=== PATIENT | female | born 1975 | race Caucasian/White ===

== ENCOUNTER 2017-02-20 08:59 | Inpatient (IN) | payer MEDICAID ==
[~2017-02-20] VITALS: Ht 157.5 cm; Wt 132.3 kg
[2017-02-20 09:28] VITALS: Ht 157.5 cm; Wt 132.3 kg
[2017-02-20] MEDS ORDERED: PREN1TAB79 PO (09:47)
[2017-02-20] MEDS ORDERED: LACTATED RINGER'S 1,000 ML IV PRN (10:00)
[2017-02-20] MEDS ORDERED: IBUPROFEN 600 MG TAB PO PRN ×2 (10:00→20:20)
[2017-02-20] MEDS ORDERED: CARBOPROST 250 MCG INJ IM PRN (10:00)
[2017-02-20] MEDS ORDERED: HYDROCODONE/APAP (5/325) TAB PO PRN (10:00)
[2017-02-20] MEDS ORDERED: OXYTOCIN 30 UNITS/LR 500 ML IV PRN (10:00)
[2017-02-20] MEDS ORDERED: LIDOCAINE 1% (MPF) 30 ML INJ INJ PRN (10:00)
[2017-02-20] MEDS ORDERED: MISOPROSTOL 200 MCG TAB PR PRN (10:00)
[2017-02-20] MEDS ORDERED: DINOPROSTONE 10 MG VAG SUPP VAG ONE (10:00)
[2017-02-20] MEDS ORDERED: OXYTOCIN 30 UNITS/LR 500 ML IV SCH ×2 (10:00)
[2017-02-20] MEDS ORDERED: BUTORPHANOL 2 MG INJ IV PRN (10:00)
[2017-02-20] MEDS ORDERED: METHYLERGONOVINE 0.2 MG INJ IM PRN (10:00)
[2017-02-20] MEDS ORDERED: MINERAL OIL LIGHT 10 ML VIAL TOP PRN (10:00)
[2017-02-20] MEDS: LACTATED RINGER'S 1,000 ML IV SCH ×3 (10:05→23:39)
[2017-02-20] MEDS: CLINDAMYCIN 900 MG/D5W (PMX) 50 ML IVPB SCH ×2 (10:15→19:22)
[2017-02-20 10:59] LABS: BASOPHILS % 0.3 % (0.0-2.0); EOSINOPHILS # 0.1 10^3/ul (0.0-0.5); EOSINOPHILS % 1.7 % (0.0-7.0); HEMATOCRIT 38.4 % (37.0-47.0); HEMOGLOBIN 12.9 g/dl (12.0-16.0); LYMPHOCYTES # 1.4 10^3/ul (0.8-2.9); LYMPHOCYTES % 20.3 % (15.0-51.0); MEAN CORPUSCULAR HEMOGLOBIN 31.9 pg (29.0-33.0); MEAN CORPUSCULAR HGB CONC 33.6 g/dl (32.0-37.0); MONOCYTE # 0.7 10^3/ul (0.3-0.9); MONOCYTES % 9.8 % (0.0-11.0); NEUTROPHIL # 4.5 10^3/ul (1.6-7.5); NEUTROPHILS % 67.4 % (39.0-77.0); PLATELET COUNT 129 10^3/UL (140-415); RED BLOOD COUNT 4.04 10^6/ul (4.20-5.40); WHITE BLOOD COUNT 6.7 10^3/ul (4.8-10.8)
[2017-02-20 11:19] LABS: INR 0.88; PROTIME 11.9 Sec (12.2-14.2); PT RATIO 0.9
[2017-02-20 11:20] LABS: PARTIAL THROMBOPLASTIN TIME 24.7 Sec (25.0-35.0)
--- NOTE | 2017-02-20 11:26 | RADRPT ---
PROCEDURE: US OB. CLINICAL INDICATION: Size and dates TECHNIQUE: Multiple sonographic images of the pelvis and gravid uterus were obtained. The images were reviewed on a PACS workstation. COMPARISON: No prior studies are available for comparison. FINDINGS: There is a single viable intrauterine gestation. Cardiac activity is present with 163 beats per min luisa. There is a vertex presentation. The placenta is anterior. There is no evidence for an abruption or placenta previa. Measurements were made in order to determine age. The results are as follows: BPD =9.3 cm HC =34.1 cm AC =35.1 cm FL =7.6 cm Estimated gestational age of approximately 38 weeks and 5 days based on ultrasound measurements. Clinical age: 39 weeks and 4 days. The estimated date of delivery is 03/01/17, based on ultrasound measurements. The EFW = 3603 g, 55%, based on LMP age. RPTAT: AA IMPRESSION: Single viable intrauterine gestation of approximately 38 weeks and 5 days based on ultrasound measu rements. .Magdi Newton MD, Date Time Electronically viewed and signed by .Magdi Newton MD, on 02/20/2017 11:26 .S/
[2017-02-20] MEDS ORDERED: DEXTROSE 5%-LR 1,000 ML IV PRN (15:30)
[2017-02-20 16:23] VITALS: BP 116/63; PULSE 65; RESP 20
[2017-02-21] MEDS ORDERED: FENTAnyl 2MCG/ML-ROPIV 0.2% 100 ML ONE (02:18)
[2017-02-21] MEDS ORDERED: ONDANSETRON 4 MG INJ IV PRN ×2 (03:00→14:00)
[2017-02-21] MEDS ORDERED: FENTAnyl 2MCG/ML-ROPIV 0.2% 100 ML BAG EPI SCH (03:00)
[2017-02-21] MEDS ORDERED: HYDROmorphONE 1 MG/ML SYG IV PRN ×2 (03:00)
[2017-02-21] MEDS ORDERED: DIPHENHYDRAMINE 50 MG INJ IV PRN ×2 (03:00→14:00)
[2017-02-21] MEDS ORDERED: KETOROLAC 30 MG INJ IV PRN ×2 (03:00→14:00)
[2017-02-21] MEDS ORDERED: ZOLPIDEM 5 MG TAB PO PRN ×2 (03:00→14:00)
[2017-02-21] MEDS ORDERED: NALOXONE (0.4 MG/ML) INJ IV PRN ×2 (03:00→14:00)
[2017-02-21] MEDS: CLINDAMYCIN 900 MG/D5W (PMX) 50 ML IVPB SCH ×3 (03:26→22:00)
[2017-02-21] MEDS ORDERED: OXYTOCIN 30 UNITS/LR 500 ML BAG IV ONE (07:00)
[2017-02-21] MEDS: LACTATED RINGER'S 1,000 ML IV SCH ×2 (07:23→22:12)
[2017-02-21] MEDS ORDERED: FENTAnyl 50 MCG/ML VIAL ONE (12:01)
[2017-02-21] MEDS ORDERED: LIDOCAINE 2%/EPI 30 ML INJ ONE (12:01)
[2017-02-21] MEDS ORDERED: DEXAMETHASONE 4 MG/ML 1 ML INJ ONE (12:09)
[2017-02-21] MEDS ORDERED: PHENYLephrine (100 MCG/ML) 5ML SYG ONE (12:12)
[2017-02-21] MEDS ORDERED: morphine SULFATE/PF (10 MG/10 ML) INJ ONE (12:38)
[2017-02-21] MEDS ORDERED: morphine 4 MG/ML VIAL IV PRN (14:00)
[2017-02-21] MEDS ORDERED: morphine 2 MG INJ IV PRN (14:00)
[2017-02-21 18:48] VITALS: BP 113/70; PULSE 47; RESP 20
[2017-02-21 19:40] VITALS: BP 107/57; PULSE 53; RESP 22
--- NOTE | 2017-02-21 19:49 | HP ---
Date/Time of Note Date/Time of Note DATE: 02/21/17 TIME: 19:29 OB - History Hx of Present Free Text/Dictation 41y.o was admitted for induction of labor at 39w4d EFw 3603gm she was transferred from other clinic at 33w with PNR known to be A1DM well controlled BS GBS positive allergic to poss penicillin clindamycin given as protocol labor was established well with cervidil and f/b pitocinup to 7-8 cm when labor epidural given ,since then deep variable deceleration almost each contractions IUPC incerted and amnioinfusion was given which lessen the degree of decelerations allowed to continue labor since there is acceleration and BBV present. but no further descent of presenting part as if something holding it . primary c/s was called for failied descent and cat II tracing necessity of c/s was informed and risks were informed in detail ,, agree to have c/s Chief Complaint: iol Estimated Due Date: Feb 23, 2017 : 3 Para: 2 Spontaneous : 0 Therapeutic : 0 Care: Limited Care Ultrasounds: Normal mid trimester US Obstetrical Complications: Gestational Diabetes Medical Complications: None Past Family/Social History * Past Medical, Surgical, Family and Obstetric Histories reviewed from chart. Blood Type: O+ Rubella: immune RPR/VDRL: Negative GBS Status: Positive HBsAG: Negative OB Admission Exam Vital Signs Vital Signs Vital Signs Date Time Temp Pulse Resp B/P Pulse Ox O2 Delivery O2 Flow Rate FiO2 02/21/17 18:48 98.4 47 20 113/70 Room Air Physical Exam HEENT: WNL Heart: Rhythm Normal Lungs: Clear, Equal Abdomen: WNL Extremities: Normal Reflexes: Normal Cervical Dilatation: 7cm Effacement: 75% Station: Ballotable Membranes: Ruptured Amniotic Fluid: Clear Heart Rate: 140's Accelerations: Accelerations Present Decelerations: Variable Decelerations Varibility: Minimum Contractions on Admission: < 5 Minutes Apart Intensity: Moderate Last 72 hourBlood Glucose Bedside Glucose - 72 Hours Test 02/20/17 15:17 02/20/17 20:26 02/21/17 01:05 02/21/17 04:33 Bedside Glucose 79mg/dL (70-220) 84mg/dL (70-220) 109mg/dL (70-220) 104mg/dL (70-220) Test 02/21/17 09:10 Bedside Glucose 97mg/dL (70-220) Last 72 hours Lab Results CBC & BMP 02/20/17 09:50 OB Assessment/Plan Other Assessment: IUP 39w5d failed descent CATII Plan: Section ARINA CROWELL MD Feb 21, 2017 19:42
[2017-02-21] MEDS: ACCU-CHEK XX SCH (20:49)
[2017-02-22] VITALS: BP_SYST 106; BP_DIAS 40; BP_DIAS 50; PULSE 60; RESP 21
[2017-02-22] MEDS: ACCU-CHEK XX SCH ×2 (00:49→05:00)
[2017-02-22 04:00] VITALS: BP 106/57; PULSE 69; RESP 20
[2017-02-22] MEDS: LACTATED RINGER'S 1,000 ML IV SCH (05:55)
[2017-02-22] MEDS: CLINDAMYCIN 900 MG/D5W (PMX) 50 ML IVPB SCH (06:00)
[2017-02-22 08:00] VITALS: BP 106/60; PULSE 69; RESP 18
[2017-02-22 08:46] LABS: BASOPHILS % 0.2 % (0.0-2.0); HEMATOCRIT 36.1 % (37.0-47.0); LYMPHOCYTES % 20.4 % (15.0-51.0); MEAN CORPUSCULAR HGB CONC 33.2 g/dl (32.0-37.0); MEAN CORPUSCULAR VOLUME 96.3 fl (82.0-101.0); MEAN PLATELET VOLUME 12.1 fl (7.4-10.4); MONOCYTE # 0.8 10^3/ul (0.3-0.9); MONOCYTES % 8.4 % (0.0-11.0); NEUTROPHILS % 70.6 % (39.0-77.0); PLATELET COUNT 120 10^3/UL (140-415); RED BLOOD COUNT 3.75 10^6/ul (4.20-5.40); RED CELL DISTRIBUTION WIDTH 13.5 % (11.5-14.5); WHITE BLOOD COUNT 9.9 10^3/ul (4.8-10.8)
--- NOTE | 2017-02-22 09:42 | OPR ---
DATE OF OPERATION: 02/21/2017 PREOPERATIVE DIAGNOSES: 1. at 39 weeks 5 days. 2. Failure to descend. 3. Category 2 heart tracing. POSTOPERATIVE DIAGNOSES: 1. at 39 weeks 5 days. 2. Failure to descend. 3. Category 2 heart tracing. 4. Delivered normal female , 7 pounds 3 ounces, with score of 6 and 9. OPERATIVE PROCEDURE: Primary low transverse section. SURGEON: Char Xiong MD PROPERTY FIELD ADJUSTER: Maria De Jesus Esposito MD ANESTHESIA: Spinal. ANESTHESIOLOGIST: Eugene Arellano MD ESTIMATED BLOOD LOSS: Approximately 600 mL. PROCEDURE IN DETAIL: The patient was brought to the OR, the spinal anesthesia was given, and the patient was placed in the supine position. Abdominal wall was prepped and draped in usual aseptic manner. A Pfannenstiel incision was made. The incision was carried down through the subcutaneous tissue to the anterior rectus fascia, which was incised transversely the length of the incision. Fascial flap was created by blunt and sharp dissection of tendinous attachment and the 2 rectus muscles were in the midline. The peritoneal cavity was entered. The lower portion of the uterus was exposed. A transposition was on made on the visceral peritoneum above the uterovesical reflection, layer by layer, reaching the amniotic membrane, ruptured. Clear amniotic fluid, large amount. A normal female infant was born from right occiput posterior via assisting Kiwi vacuum and the mouth and nose were cleaned, delayed cord clamping was done and cut, and the infant handed to the respiratory care personnel for further care. Cord blood was also obtained. The placenta was removed manually. The cavity was completely explored after the uterus was exteriorized. The uterine incision was closed using number 1 chromic catgut in continuous interlocking manner in the 1st layer, the 2nd layer using 0- chromic catgut in continuous manner. No bleeding noted. The uterus was relocated after the abdomen cavity was irrigated with water and the uterine instrument site was rechecked for bleeder, which was intact. A piece of Surgicel was laid on top of the incision and sponge count and instrument count were correct and parietal peritoneum was closed using 0-chromic catgut in continuous manner. Muscle closed with 0-chromic catgut in continuous manner. Fascia closed with number 1 Vicryl in continuous manner in 2 segments. Subcutaneous tissues were irrigated with water. This layer was approximated with 2-0 plain in continuous manner after adequate hemostasis was secured. Skin closed with INSORB and Steri-Strips were applied. Pressure dressing applied. Estimated blood loss approximately 600 mL. The patient released to the post-anesthesia room in stable condition. Dictated By: Char Xiong MD /[place]/jackelin /Document#: [id number]
[2017-02-22 12:00] VITALS: BP 108/62; PULSE 64; RESP 16
[2017-02-22 16:00] VITALS: BP 117/76; PULSE 57; RESP 17
[2017-02-22 20:05] VITALS: BP 97/54; PULSE 75; RESP 18
[2017-02-22] MEDS ORDERED: INFLUENZA VIRUS VACCINE 0.5 ML SYG IM* ONE (20:30)
--- NOTE | 2017-02-22 22:16 | PN ---
Date/Time of Note Date/Time of Note DATE: 02/22/17 TIME: 22:14 OB Subjective Subjective Subjective had small b.m ambulating ok tolerating liquid well OB Objective Objective Objective vss afebrile abdomen soft wound dry lochia min calf neg for tenderness OB Assessment/Plan Other Assessment: stable POD#1 c/s Plan: Expectant Management Other plan: s ordered ARINA CROWELL MD Feb 22, 2017 22:16
[2017-02-22] MEDS ORDERED: OXYCODONE/ACETAMINOPHEN (5/325) TAB PO PRN (22:30)
[2017-02-22] MEDS ORDERED: DIPHENHYDRAMINE 50 MG INJ IV PRN (22:30)
[2017-02-22] MEDS ORDERED: ZOLPIDEM 5 MG TAB PO PRN (22:30)
[2017-02-22] MEDS ORDERED: OXYTOCIN 30 UNITS/LR 500 ML IV PRN (22:30)
[2017-02-22] MEDS ORDERED: METHYLERGONOVINE 0.2 MG INJ IM PRN (22:30)
[2017-02-22] MEDS ORDERED: ONDANSETRON 4 MG INJ IV PRN (22:30)
[2017-02-22] MEDS ORDERED: LANOLIN 7 GM TUBE TOP PRN (22:30)
[2017-02-22] MEDS ORDERED: CARBOPROST 250 MCG INJ IM PRN (22:30)
[2017-02-22] MEDS ORDERED: MISOPROSTOL 200 MCG TAB PR PRN (22:30)
[2017-02-22] MEDS: IBUPROFEN 600 MG TAB PO SCH (23:30)
[2017-02-23 04:00] VITALS: BP 96/50; PULSE 55; RESP 18
[2017-02-23] MEDS: IBUPROFEN 600 MG TAB PO SCH ×4 (06:07→23:29)
[2017-02-23 08:15] VITALS: BP 110/56; PULSE 69; RESP 18
[2017-02-23] MEDS: SENNA/DOCUSATE NA (8.6MG/50MG) TAB PO SCH ×2 (10:03→21:06)
[2017-02-23] MEDS: OXYCODONE/ACETAMINOPHEN (5/325) TAB PO PRN ×2 (12:17→21:18)
--- NOTE | 2017-02-23 14:58 | PN ---
Date/Time of Note Date/Time of Note DATE: 02/23/17 TIME: 14:55 OB Subjective Subjective Subjective c/o incisional pain passing flatus OB Objective Objective Objective vss afebrile abdomen tympanic wound dry lochia min calf neg for tenderness OB Assessment/Plan Other Assessment: po c/s stable Other plan: as ordered ARINA CROWELL MD Feb 23, 2017 14:57
[2017-02-23 16:00] VITALS: BP 111/52; PULSE 71; RESP 18
[2017-02-23 20:30] VITALS: BP 90/51; PULSE 68; RESP 18
[2017-02-24 04:00] VITALS: BP 112/61; PULSE 72; RESP 18
[2017-02-24] MEDS: OXYCODONE/ACETAMINOPHEN (5/325) TAB PO PRN (04:22)
[2017-02-24] MEDS: IBUPROFEN 600 MG TAB PO SCH ×3 (05:44→17:40)
[2017-02-24 08:00] VITALS: BP 121/65; PULSE 65; RESP 18
[2017-02-24] MEDS: SENNA/DOCUSATE NA (8.6MG/50MG) TAB PO SCH (09:06)
--- NOTE | 2017-02-24 14:25 | CONS ---
Date/Time of Note Date/Time of Note DATE: 02/24/17 TIME: 14:24 Consultation Date/Type/Reason Admit Date/Time Feb 20, 2017 at 08:59 Initial Consult Date 02/22/17 Type of Consultation: Anesthesiology Reason for Consultation Follow up 24 HR Interval Summary Free Text/Dictation Pt seen and examined at bedside on 02/22/17 is POD#1 s/p . Pt received Epidural for labor pain relief. No N/V/D/TIM/Numbness in extremities. Will follow. Constitutional: improved, no complaints Exam/Review of Systems Vital Signs Vitals Vital Signs Date Time Temp Pulse Resp B/P Pulse Ox O2 Delivery O2 Flow Rate FiO2 02/24/17 08:00 98.2 65 18 121/65 02/24/17 04:00 Room Air 02/22/17 01:20 93 21 Results Result Diagram: 02/22/17 0825 02/20/17 0950 Medications Medications Current Medications Oxycodone/ Acetaminophen (Percocet (5/ 325)) 1 tab Q4H PRN PO PAIN LEVEL 4-6 Last administered on 02/24/17 04:22; Admin Dose 1 TAB; Start 02/22/17 at 22:30 Oxycodone/ Acetaminophen (Percocet (5/ 325)) 2 tab Q4H PRN PO PAIN LEVEL 7-10 Last administered on 02/23/17 16:30; Admin Dose 2 TAB; Start 02/22/17 at 22:30 Ibuprofen (Motrin) 600 mg Q6 PO Last administered on 02/24/17 12:13; Admin Dose 600 MG; Start 02/23/17 at 00:00 Simethicone (Mylicon) 160 mg Q8H PRN PO DISTENSION/GAS/BLOATING Last administered on 02/24/17 04:22; Admin Dose 160 MG; Start 02/22/17 at 22:30 Senna/Docusate Sodium (Senokot-S) 1 tab BID PO Last administered on 02/24/17 09:06; Admin Dose 1 TAB; Start 02/23/17 at 09:00 Diphtheria/ Tetanus/Acell Pertussis 0.5 ml 0.5 ml ONCE ONCE IM* ; Start at 09:00; Stop 02/25/17 at 09:01 Oxytocin/Lactated Ringer's 500 ml @ 0 mls/hr ONCE PRN IV For Hemorrhage Management; Start 02/22/17 at 22:30 Methylergonovine Maleate (Methergine) 0.2 mg ONCE PRN IM VAGINAL BLEEDING; Start 02/22/17 at 22:30 Carboprost Tromethamine (Hemabate) 250 mcg ONCE PRN IM VAGINAL BLEEDING; Start 02/22/17 at 22:30 Misoprostol (Cytotec) 1,000 mcg ONCE PRN HI VAGINAL BLEEDING; Start 02/22/17 at 22:30 Diphenhydramine HCl (Benadryl) 25 mg Q6H PRN IV PRURITUS; Start 02/22/17 at 22: 30 Ondansetron HCl (Zofran Inj) 4 mg Q6H PRN IV NAUSEA AND/OR VOMITING; Start at 22:30 TERESSA WONG Feb 24, 2017 14:25
[2017-02-24 16:00] VITALS: BP 128/75; PULSE 69; RESP 18
--- NOTE | 2017-02-24 17:57 | PD.PPDC ---
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
--- NOTE | 2017-02-24 18:09 | DS ---
Date/Time of Note Date/Time of Note DATE: 02/24/17 TIME: 18:06 Obstetrical Discharge Record Final Diagnosis Final Diagnosis: Term delivered Vaginal Delivery Obstetrical Delivery: Bilateral Tubal Ligation Section Section: Primary Primary Indication failed to descent Complications Induction: Yes Rupture of Membranes: No Condition on Discharge Physical Assessment Last Vitals: vss afebrile Voiding: Yes Bowel Movement: No Breast: Soft, non-tender Fundus: Firm Abdomen and Incision: mildly distended wound dry Calf Tenderness: No Patient Condition: Stable ARINA CROWELL MD Feb 24, 2017 18:09
[2017-02-25] MEDS ORDERED: DIPHTH/TET/ACEL PERTUSS (ADULT) 0.5 ML VIAL IM* ONE (09:00)
== END 2017-02-24 20:00 | disposition home or self-care (01) | DRG 765 ==
LOC: L-D 08:59 → PP1 02-21 17:53
PROVIDERS: ADMIT Obstetrics & Gynecology; ATTEND Obstetrics & Gynecology
PROC: 10H07YZ Insertion of Other Device into Products of Conception, Via Natural or Artificial Opening (ICD-10-PCS; 2017-02-21)
PROC: 3E0E7GC Introduction of Other Therapeutic Substance into Products of Conception, Via Natural or Artificial Opening (ICD-10-PCS; 2017-02-21)
PROC: 10D00Z1 Extraction of Products of Conception, Low, Open Approach (ICD-10-PCS; principal; 2017-02-21 13:00)
DX: O32.4XX0 Maternal care for high head at term, not applicable or unspecified (principal); Z68.43 Body mass index [BMI] 50.0-59.9, adult; O24.420 Gestational diabetes mellitus in childbirth, diet controlled; O76 Abnormality in fetal heart rate and rhythm complicating labor and delivery; Z37.0 Single live birth; Z3A.39 39 weeks gestation of pregnancy; O99.824 Streptococcus B carrier state complicating childbirth; O99.214 Obesity complicating childbirth; E66.01 Morbid (severe) obesity due to excess calories
CPT/HCPCS: 62319; 76815; 82947; 82962; 85025; 85610; 85730; 86592; 86850; 86900; 86901; 87340; 90686; 94760; 99464; J0595; J1100; J1885; J2274; J2370; J2405; J2590; J3010; J7120